=== PATIENT | female | born 1960 | race Caucasian/White ===

== ENCOUNTER → 2019-12-16 | Outpatient (CLI) | payer BC | END | disposition home or self-care (01) | LOC: US 16:36 | DX: E06.3 Autoimmune thyroiditis (principal); E04.1 Nontoxic single thyroid nodule | CPT/HCPCS: 76536 ==

== ENCOUNTER → 2020-05-23 | Outpatient (CLI) | payer BC | END | disposition home or self-care (01) | LOC: LAB 11:09 | DX: Z11.59 Encounter for screening for other viral diseases (principal) | CPT/HCPCS: 87635; C9803 ==

== ENCOUNTER → 2020-05-25 | Outpatient (CLI) | payer BC | END | disposition home or self-care (01) | LOC: MAMMO 08:47 | DX: Z12.31 Encounter for screening mammogram for malignant neoplasm of breast (principal); M54.2 Cervicalgia; N63.41 Unspecified lump in right breast, subareolar; N63.22 Unspecified lump in the left breast, upper inner quadrant | CPT/HCPCS: 72040; 77067 ==

== ENCOUNTER → 2020-05-25 | Outpatient (CLI) | payer BC | END | disposition home or self-care (01) | LOC: MRI 08:43 | PROVIDERS: ATTEND Neurological Surgery | DX: M48.02 Spinal stenosis, cervical region (principal); M54.2 Cervicalgia; M89.38 Hypertrophy of bone, other site | CPT/HCPCS: 72141 ==

== ENCOUNTER → 2020-06-14 | Outpatient (CLI) | payer BC | END | disposition home or self-care (01) | LOC: LAB 12:31 | DX: Z11.59 Encounter for screening for other viral diseases (principal) | CPT/HCPCS: C9803; U0003 ==

== ENCOUNTER → 2020-06-15 | Outpatient (CLI) | payer BC | END | disposition home or self-care (01) | LOC: RAD 14:09 | DX: N63.11 Unspecified lump in the right breast, upper outer quadrant (principal); N60.02 Solitary cyst of left breast; N60.01 Solitary cyst of right breast; R10.9 Unspecified abdominal pain | CPT/HCPCS: 76642; 76770; 77066 ==

== ENCOUNTER → 2020-10-11 | Outpatient (CLI) | payer BC | END | disposition home or self-care (01) | LOC: LAB 15:52 | PROVIDERS: ATTEND Internal Medicine Critical Care Medicine | DX: Z20.828 Contact with and (suspected) exposure to other viral communicable diseases (principal) | CPT/HCPCS: 87426 ==

== ENCOUNTER → 2021-04-24 | Outpatient (CLI) | payer BC | END | disposition home or self-care (01) | LOC: US 08:12 | PROVIDERS: ATTEND Physician Assistant Medical | DX: N60.01 Solitary cyst of right breast (principal); N60.02 Solitary cyst of left breast; R59.0 Localized enlarged lymph nodes; K76.89 Other specified diseases of liver; N63.20 Unspecified lump in the left breast, unspecified quadrant; N63.10 Unspecified lump in the right breast, unspecified quadrant; R31.9 Hematuria, unspecified | CPT/HCPCS: 76642; 76700; 76857; 77066 ==

== ENCOUNTER 2023-04-15 19:07 | Emergency (ER) | payer BC ==
[~2023-04-15] VITALS: Ht 154.9 cm; Wt 73.0 kg
[2023-04-15 19:19] VITALS: O2SAT 96
[2023-04-15] MEDS ORDERED: DEXAMETHASONE 10 MG/ML VIAL IV ONE (19:45)
[2023-04-15] MEDS ORDERED: MORPHINE SULFATE 4 MG/ML CPJ (NOT FOR IM USE) IV ONE (19:45)
[2023-04-15] MEDS ORDERED: KETOROLAC 30MG/ML VIAL IV ONE (19:45)
[2023-04-15] MEDS ORDERED: CYCLOBENZAPRINE 10MG TABLET PO ONE (20:00)
[2023-04-15 20:12] VITALS: TEMP 98.3
[2023-04-15] MEDS ORDERED: HYDR-4001 MT (20:46)
[2023-04-15] MEDS ORDERED: DICL75TA5 MT (20:46)
[2023-04-15] MEDS ORDERED: P20 MT (20:48)
[2023-04-15] MEDS ORDERED: HYDROCODONE/ACETAMINOPHEN 5/325MG TABLET PO ONE (21:00)
[2023-04-15 21:14] VITALS: BP 96/60; PULSE 96; RESP 19
[2023-04-16] MEDS ORDERED: HYDR-4009 MT (16:49)
== END 2023-04-15 21:16 | disposition home or self-care (01) ==
LOC: ER 20:13
DX: M54.30 Sciatica, unspecified side (principal); I10 Essential (primary) hypertension; Z98.890 Other specified postprocedural states
CPT/HCPCS: 96374; 96375; 99284; J1100; J2270; Z7610

== ENCOUNTER → 2024-09-21 | Outpatient (CLI) | payer BC ==
[~2024-09-21] MED LIST: DICL75TA5 MT; HYDR-4001 MT; HYDR-4009 MT; P20 MT
== END | disposition home or self-care (01) ==
LOC: RAD 11:25
DX: M19.042 Primary osteoarthritis, left hand (principal); M19.041 Primary osteoarthritis, right hand
CPT/HCPCS: 73130

== ENCOUNTER → 2024-10-12 | Outpatient (CLI) | payer BC | END | disposition home or self-care (01) | LOC: US 07:12 | DX: R74.01 Elevation of levels of liver transaminase levels (principal) | CPT/HCPCS: 76700 ==

== ENCOUNTER 2025-04-30 10:57 | Emergency (ER) | payer BC ==
[~2025-04-30] VITALS: Ht 167.6 cm; Wt 76.0 kg
[2025-04-30 11:06] VITALS: TEMP 37.1; O2SAT 99
[2025-04-30] MEDS: ACETAMINOPHEN 325MG TABLET PO ONE (12:06)
[2025-04-30] MEDS: CYCLOBENZAPRINE 10MG TABLET PO ONE (12:07)
[2025-04-30] MEDS: KETOROLAC 30MG/ML VIAL IM ONE (12:07)
[2025-04-30] MEDS: LIDOCAINE 5% PATCH TOP STA (12:07)
[2025-04-30] MEDS ORDERED: TRAM50TA3 MT (14:31)
[2025-04-30] MEDS ORDERED: LIDO700A30 TP (14:47)
[2025-04-30] MEDS ORDERED: CYCL10TA21 MT (14:47)
[2025-04-30] MEDS ORDERED: ONDA-239 PO (14:47)
[2025-04-30 14:51] VITALS: O2SAT 100
[2025-04-30 14:54] VITALS: BP 120/64; PULSE 62; RESP 16
[2025-04-30] MEDS: ONDANSETRON 4MG ODT PO ONE (14:54)
[2025-04-30] MEDS: TRAMADOL 50MG TABLET PO ONE (14:54)
== END 2025-04-30 14:56 | disposition home or self-care (01) ==
LOC: ER 11:05
DX: M54.42 Lumbago with sciatica, left side (principal); R11.0 Nausea; E03.9 Hypothyroidism, unspecified; Z90.710 Acquired absence of both cervix and uterus; Z79.899 Other long term (current) drug therapy
CPT/HCPCS: 99284; 72100; 96372; J1885; Q0162

== ENCOUNTER → 2025-07-13 | Outpatient (CLI) | payer BC ==
[~2025-07-13] MED LIST changes: +CYCL10TA21 MT; +LIDO700A30 TP; +ONDA-239 PO; +TRAM50TA3 MT
== END | disposition home or self-care (01) ==
LOC: RAD 16:35
PROVIDERS: ATTEND Internal Medicine
DX: M25.522 Pain in left elbow (principal)
CPT/HCPCS: 73080

== ENCOUNTER → 2025-09-21 | Outpatient (CLI) | payer BC | END | disposition home or self-care (01) | LOC: MRI 10:03 | DX: M47.817 Spondylosis without myelopathy or radiculopathy, lumbosacral region (principal); M51.370 Other intervertebral disc degeneration, lumbosacral region with discogenic back pain only; M51.27 Other intervertebral disc displacement, lumbosacral region; M48.07 Spinal stenosis, lumbosacral region; M51.34 Other intervertebral disc degeneration, thoracic region; M25.562 Pain in left knee; M25.561 Pain in right knee; M25.552 Pain in left hip; M25.551 Pain in right hip | CPT/HCPCS: 72148; 73521; 73562 ==

== ENCOUNTER → 2025-09-28 | Outpatient (CLI) | payer BC | END | disposition home or self-care (01) | LOC: RAD 09:32 | DX: M81.0 Age-related osteoporosis without current pathological fracture (principal); Z78.0 Asymptomatic menopausal state | CPT/HCPCS: 77080 ==